=== PATIENT | female | born 1985 | race Caucasian/White ===

== ENCOUNTER 2017-11-18 11:30 | Inpatient (IN) | payer OTHER ==
[2017-11-18] MEDS ORDERED: Ondansetron HCl/PF 4 MG/2 ML Vial IVP PRN (12:15)
[2017-11-18] MEDS ORDERED: NS / Oxytocin 40 units/1000ml 1,000 ML IV PRN (12:15)
[2017-11-18] MEDS ORDERED: Promethazine HCl 25 MG/ML VIAL IM PRN (12:15)
[2017-11-18 12:58] VITALS: BMI 19.7
[2017-11-18] MEDS: Lactated Ringer's 1,000 ML IV SCH ×2 (13:13→20:06)
[2017-11-18 13:32] LABS: Hemoglobin 14.6 g/dL (12.0-16.0); Mean Corpuscular HGB CONC 33.6 g/dL (32.0-36.0); Mean Corpuscular Hemoglobin 31.3 pg (27.0-31.0); Mean Corpuscular Volume 93.2 fL (78.0-98.0); Mean Platelet Volume 8.1 fL (7.4-10.4); Platelet Count 264 thou/uL (130-400); RBC Distribution Width 12.5 % (11.5-14.5); Red Blood Cell (RBC) Count 4.65 mill/uL (4.20-5.40)
[2017-11-18] MEDS: Misoprostol 200 MCG TAB VAG SCH ×3 (13:39→22:04)
[2017-11-18] MEDS: Acetaminophen 500 MG TAB PO PRN ×2 (14:04→22:10)
--- NOTE | 2017-11-18 15:03 | ULT ---
OBSTETRIC SONOGRAM LIMITED: 11/18/17 HISTORY: Intrauterine demise. FINDINGS: Single intrauterine gestation is present. No heart motion visible. Measurements correlate with 16 we eks, 3 days gestational age. IMPRESSION: Intrauterine demise. POS: [facility]
[2017-11-18] MEDS: Butorphanol Tartrate 1 MG/ML VIAL SLOW IVP PRN (22:13)
[2017-11-19] MEDS: Butorphanol Tartrate 1 MG/ML VIAL SLOW IVP PRN ×2 (01:46→02:31)
[2017-11-19] MEDS: Misoprostol 200 MCG TAB VAG SCH ×2 (02:27→07:01)
[2017-11-19 08:44] VITALS: BP 83/54; TEMP 98.8
== END 2017-11-19 09:01 | disposition home or self-care (01) | DRG 807 ==
LOC: L&D 11:30
PROVIDERS: ADMIT Family Medicine; ATTEND Family Medicine
PROC: 10E0XZZ Delivery of Products of Conception, External Approach (ICD-10-PCS; principal; 2017-11-18)
DX: O36.4XX0 Maternal care for intrauterine death, not applicable or unspecified (principal); Z37.1 Single stillbirth; Z3A.16 16 weeks gestation of pregnancy; O26.892 Other specified pregnancy related conditions, second trimester; R50.9 Fever, unspecified
CPT/HCPCS: 76815; 85027; 86850; 86900; 86901; 90384; 96372; A4216; J0595

== ENCOUNTER 2018-06-22 16:28 | Outpatient (CLI) | payer OTHER | END 2018-06-22 16:29 | disposition home or self-care (01) | LOC: CTENTCT 16:28 | PROVIDERS: ATTEND Otolaryngology Plastic Surgery within the Head & Neck | DX: J32.9 Chronic sinusitis, unspecified (principal) | CPT/HCPCS: 70486 ==